=== PATIENT | female | born 1965 | race Caucasian/White ===

== ENCOUNTER 2017-09-24 14:44 | Outpatient (CLI) | payer BC | END 2017-09-24 14:45 | disposition critical access hospital (66) | LOC: EMS 14:44 | PROVIDERS: ATTEND Surgery | DX: S01.81XA Laceration without foreign body of other part of head, initial encounter (principal); W10.8XXA Fall (on) (from) other stairs and steps, initial encounter; Y92.008 Other place in unspecified non-institutional (private) residence as the place of occurrence of the external cause | CPT/HCPCS: A0425; A0427 ==

== ENCOUNTER 2017-09-24 15:04 | Emergency (ER) | payer BC ==
[2017-09-24] MEDS ORDERED: HYDROmorphone 1 MG/ML CARPUJECT IVP STA ×2 (15:17→17:35)
[2017-09-24] MEDS ORDERED: ONDANSETRON 4 MG/2 ML VIAL IVP STA (15:17)
--- NOTE | 2017-09-24 16:15 | CT Report ---
EXAM: CT HEAD EXAM DATE: 09/24/2017 04:01 PM. CLINICAL HISTORY: Fall, forehead laceration. COMPARISON: None. TECHNIQUE: Multiaxial CT images were obtained from the foramen magnum to the vertex. Reformats: Coron al. IV contrast: None. In accordance with CT protocol optimization, one or more of the following dose reduction techniques w ere utilized for this exam: automated exposure control, adjustment of mA and/or KV based on patient s ize, or use of iterative reconstructive technique. FINDINGS: Parenchyma: No intraparenchymal hemorrhage. No evidence of mass, midline shift, or CT findings of inf arction. Morris-white differentiation is distinct. Extraaxial Spaces: Normal for age. No subdural or epidural collections. Ventricles: Normal in size and position. Sinuses and Orbits: Imaged paranasal sinuses, orbits, and mastoids show no significant abnormality. Bones: Unremarkable. Other: Soft tissue swelling over forehead with defect at laceration site. IMPRESSION: Soft tissue injury. Otherwise negative study. [facility] Referring Provider Line: [phone] SITE ID: [id number]
--- NOTE | 2017-09-24 16:19 | CT Report ---
EXAM: CT MAXILLOFACIAL WITHOUT CONTRAST EXAM DATE: 09/24/2017 04:01 PM. CLINICAL HISTORY: Fall, multiple facial injuries. COMPARISONS: None. TECHNIQUE: Thin-section axial images were acquired of the face without contrast. Post-processing: Cor onal and sagittal reformats. Other: None. In accordance with CT protocol optimization, one or more of the following dose reduction techniques w ere utilized for this exam: automated exposure control, adjustment of mA and/or KV based on patient s ize, or use of iterative reconstructive technique. FINDINGS: Soft Tissue: Soft tissue swelling and defect over the forehead. The infratemporal fossa and paraphary ngeal spaces are unremarkable. Orbits: Symmetric and unremarkable. Bones: Fracture of superior nasal spine with separation of the fracture fragment from the underlying bone. Extension of fracture lines into the nasal alae. Inferior nasal spine intact. Otherwise unremar kable. Temporomandibular Joints: The temporomandibular joints are symmetric and normally located. Sinuses: Unremarkable. No significant mucosal thickening. No air-fluid level. Other: None. IMPRESSION: 1. Nasal fracture. 2. Superficial soft tissue injury over forehead. [facility] Referring Provider Line: [phone] SITE ID: [id number]
--- NOTE | 2017-09-24 16:23 | CT Report ---
EXAM: CT CERVICAL SPINE WITHOUT CONTRAST DATE: 09/24/2017 04:01 PM. HISTORY: Fall, neck pain. COMPARISONS: None. TECHNIQUE: Thin-section axial images were acquired of the cervical spine without contrast. Post-proce ssing: Coronal and sagittal reformats. Other: None. In accordance with CT protocol optimization, one or more of the following dose reduction techniques w ere utilized for this exam: automated exposure control, adjustment of mA and/or KV based on patient s ize, or use of iterative reconstructive technique. FINDINGS: Alignment: No scoliosis or spondylolisthesis. Bones: No fracture or bone lesion. Interspace Levels/Facets: Minimal disk space narrowing at all cervical levels except C2-C3 with mild marginal lipping. Mild generalized degenerative changes. Musculature: Normal. No fatty atrophy. Other: No prevertebral soft tissue swelling. Heterogeneous enlarged thyroid. Apical blebs in the lung s. Lung apices otherwise clear. IMPRESSION: No acute disease. [facility] Referring Provider Line: [phone] SITE ID: [id number]
[2017-09-24] MEDS ORDERED: LIDOCAINE 2% 10 ML MDV SUBQ STA (16:47)
[2017-09-24] MEDS ORDERED: ceFAZolin 1 GM VIAL IVP STA (17:13)
--- NOTE | 2017-09-24 17:17 | ED Physician Documentation ---
PD HPI Fall - Stated complaint Stated Complaint: HEAD LAC - Chief complaint Chief Complaint: Trauma Hd/Nk - History obtained from History obtained from: Patient, Family, EMS - History of Present Illness Mechanism of injury: Slipped (walking down stairs) Fall distance: Standing position Where injury occurred: Home Timing - onset: How many minutes ago (30) Injury(ies) location: Head, Face Pain level max: 10 Pain level now: 10 Quality of pain: Pain, Aching, Dull Associated symptoms: No: LOC, AMS, Amnesia, Seizures, Ear drainage, Nasal drainage, Neck pain, Weakness, Paresthesias, Dyspnea, Nausea / vomiting Symptoms improve with: Rest Worsens with: Movement, Palpation Contributing factors: No: Anticoagulated, Intoxicated Recently seen: Not recently seen Review of Systems Ten Systems: 10 systems reviewed and negative Constitutional: denies: Fever, Chills Nose: denies: Rhinorrhea / runny nose, Congestion Throat: denies: Sore throat Cardiac: denies: Chest pain / pressure Respiratory: denies: Cough GI: denies: Nausea, Vomiting, Diarrhea Skin: denies: Rash Musculoskeletal: denies: Back pain, Extremity pain, Joint pain Neurologic: denies: Focal weakness, Numbness PD PAST MEDICAL HISTORY - Past Medical History Past Medical History: Yes Neuro: Seizure disorder - Past Surgical History Past Surgical History: Yes - Present Medications Home Medications: Ambulatory Orders Medication Instructions Recorded Confirmed Cephalexin [Keflex] 500 mg PO Q6H #28 capsule 09/24/17 Ondansetron Odt [Zofran] 4 mg TL Q6H PRN #10 tablet 09/24/17 Oxycodone HCl/Acetaminophen 1 - 2 each PO Q6H PRN #14 tablet 09/24/17 [Percocet 5-325 mg Tablet] - Allergies Allergies/Adverse Reactions: Allergies Allergy/AdvReac Type Severity Reaction Status Date / Time No Known Drug Allergies Allergy Verified 09/24/17 15:17 - Living Situation Living Situation: reports: With family Living Arrangement: reports: At home - Social History Does the pt smoke?: No Smoking Status: Never smoker Does the pt drink ETOH?: No Does the pt have substance abuse?: No - Immunizations Immunizations are current?: No PD ED PE NORMAL - Vitals Vital signs reviewed: Yes - General General: Alert and oriented X 3, No acute distress - HEENT HEENT: PERRL, EOMI, Moist mucous membranes, Other (small R lower lip laceration , 1cm, not through and through. Also large forehead laceration extending to the scalp. galea involved. overall laceration is approx 10cm, 5cm of galea involvement.) - Neck Neck: Supple, no meningeal sign, Other (mild mid c-spine TTP.) - Cardiac Cardiac: RRR, Strong equal pulses - Respiratory Respiratory: No respiratory distress, Clear bilaterally - Abdomen Abdomen: Soft, Non tender, Non distended - Derm Derm: Warm and dry - Extremities Extremities: No deformity, No tenderness to palpate, Normal ROM s pain - Neuro Neuro: Alert and oriented X 3, surgical clinical reviewer 2-12 intact, No motor deficit, No sensory deficit - Psych Psych: Normal mood, Normal affect Results - Vitals Vitals: Vital Signs - 24 hr 09/24/17 09/24/17 09/24/17 15:27 15:49 17:00 Temperature 36.7 C Heart Rate 72 65 69 Respiratory 12 18 14 Rate Blood Pressure 194/83 H 172/79 H 160/74 H O2 Saturation 96 98 100 09/24/17 09/24/17 18:00 18:48 Temperature Heart Rate 65 60 Respiratory 16 Rate Blood Pressure 118/71 113/67 O2 Saturation 94 93 Oxygen O2 Source Room air - Rads (name of study) head CT Radiology: Prelim report reviewed, EMP read contemporaneously, See rad report ( Soft tissue injury. Otherwise negative study. ) Cervical spine CT Radiology: Prelim report reviewed, EMP read contemporaneously, See rad report ( No acute disease.) facial CT Radiology: Prelim report reviewed, EMP read contemporaneously, See rad report ( Nasal fracture. 2. Superficial soft tissue injury over forehead. ) Procedures - Laceration (location) 10cm, forehead Length in cm: 10 Wound type: Curved, Flap Neurovascular status: Sensory intact, Vascular intact Anesthesia: Lidocaine 2% Wound Preparation: Irrigated copiously NS, Wound explored, To the base. No: FB identified, FB removed Skin layer closure: Nylon, [place], Interrupted Other: Patient tolerated well, No complications, Neurovascular intact Complexity: Simple lower lip Length in cm: 1 Wound type: Linear, Into muscle, Clean Neurovascular status: Sensory intact, Motor intact, Vascular intact Anesthesia: Lidocaine 2% Wound Preparation: Irrigated copiously NS, Wound explored, To the base. No: FB identified, FB removed Skin layer closure: Nylon, Interrupted Other: Patient tolerated well, No complications, Neurovascular intact Complexity: Simple PD MEDICAL DECISION MAKING - ED course Complexity details: reviewed results, re-evaluated patient, considered differential, d/w patient, d/w family, d/w farm consultant ([id number] - Dr. Lira (plastic surgery at [facility]). Recommends not worrying about closing the galea. Close the skin and follow up in clinic. ) ED course: Patient is a 52-year-old female who presents to the emergency department after a fall down the stairs today. No acute findings on CT scans. She does have a right lower lip laceration that is not through and through. This was repaired. Tolerated well. Also has a large forehead laceration that involves the galea , I discussed the case with plastic surgery who recommends closing the skin and leaving the galea open as it was difficult to reapproximate. States he will follow-up with the patient in clinic. Patient is comfortable with this plan. Patient has someone to stay with her at home today and tomorrow. Patient counseled regarding signs and symptoms for which I believe and urgent re- evaluation would be necessary. Patient with good understanding of and agreement to plan and is comfortable going home at this time This document was made in part using voice recognition software. While efforts are made to proofread this document, sound alike and grammatical errors may occur. Departure - Departure Disposition: 01 Home, Self Care Clinical Impression: Laceration of forehead, complicated Qualifiers: Encounter type: initial encounter Qualified Code(s): S01.81XA - Laceration without foreign body of other part of head, initial encounter Lip laceration Qualifiers: Encounter type: initial encounter Qualified Code(s): S01.511A - Laceration without foreign body of lip, initial encounter Head injury Qualifiers: Encounter type: initial encounter Qualified Code(s): S09.90XA - Unspecified injury of head, initial encounter Condition: Good Instructions: ED Laceration Facial Sutr Tape Follow-Up: Angelo Ramirez MD [Provider Admit Priv/Credential] - Within 1 week Prescriptions: Cephalexin [Keflex] 500 mg PO Q6H #28 capsule Ondansetron Odt [Zofran] 4 mg TL Q6H PRN #10 tablet PRN Reason: Nausea / Vomiting Oxycodone HCl/Acetaminophen [Percocet 5-325 mg Tablet] 1 - 2 each PO Q6H PRN # 14 tablet PRN Reason: pain Comments: You should follow-up with Dr. Ramirez for suture removal in approximately 5 days from your lip and approximately 7 days for your forehead. The galen can be removed in approximately 10 days. I spoke with Dr. Soraya clemente, plastic surgery at [facility] in [place] who is willing to see you in his office, his office number is , call for an appointment and he will see you in 1-2 weeks. You may need a referral for this. Keep the wound clean. Return for redness, swelling or drainage from the wound. Do not drink alcohol or drive while on narcotic pain medicine. Note that many narcotic pain relievers also contain tylenol/acetaminophen. Please ensure that your total dose of acetaminophen from all sources does not exceed 3 grams (3000mg) per day. You may constipated on this medication, take a stool softener such as "Colace" twice a day while you are on it. Also recommend a lldo-ehw-miippuf laxative such as senna or MiraLAX any day that you do not have a bowel movement. If you received narcotic pain medication in the emergency department, do not drive or operate machinery for the next 24 hours. Forms: Activity restrictions Discharge Date/Time: 09/24/17 18:49
[2017-09-24] MEDS ORDERED: BACITRACIN OINT TOP STA (18:26)
[2017-09-24] MEDS ORDERED: TETANUS/DIPHTHERIA/PERTUSSIS 0.5 ML SYRINGE IM ONE (18:27)
[2017-09-24 18:49] VITALS: BP 113/67
== END 2017-09-24 18:49 | disposition home or self-care (01) ==
LOC: EDUNIT# → ED 15:04
DX: S01.81XA Laceration without foreign body of other part of head, initial encounter (principal); S01.511A Laceration without foreign body of lip, initial encounter; W10.9XXA Fall (on) (from) unspecified stairs and steps, initial encounter; Z23 Encounter for immunization
CPT/HCPCS: 12015; 36415; 70450; 70486; 72125; 90471; 90715; 96374; 96376; 99284; 99285; A9270; J1170

== ENCOUNTER 2019-02-03 08:50 | Outpatient (CLI) | payer OTHER ==
[2019-02-03] MEDS ORDERED: GADOBUTROL 7.5 MMOL/7.5 ML VIAL ONE (09:25)
[2019-02-03] MEDS ORDERED: GADOBUTROL 7.5 MMOL/7.5 ML VIAL IVP ONE (09:41)
--- NOTE | 2019-02-03 23:45 | MRI Report ---
Reason: TREMOR, DYSEQUILIBRIUM, HX OF CLOSED HEAD INJURY Procedure Date: 02/03/2019 Accession Number: [id number] / [id number] Procedure: MRI - Brain W/WO CPT Code: FULL RESULT: EXAM: MRI BRAIN WITHOUT AND WITH CONTRAST EXAM DATE: 02/03/2019 09:59 AM. CLINICAL HISTORY: TREMOR, DYSEQUILIBRIUM, HX OF CLOSED HEAD INJURY. COMPARISON: Prior CT head 09/24/2017. TECHNIQUE: Multiplanar, multisequence T1-weighted and fluid-sensitive MR sequences of the brain were performed. Sequences optimized for routine evaluation. Other: None. IV Contrast: 6 cc Gadavist. Findings: Relevant images are indicated (image number, series number). There is no acute/subacute ischemic change of the brain. Gradient echo imaging negative. There is no hemorrhage, mass or midline shift. There is no significant cortical atrophy or white matter disease. Paranasal sinuses, orbital contents grossly unremarkable, degraded by motion. Pituitary negative. Midbrain, craniocervical junction, limited upper cervical cord negative. Postcontrast imaging demonstrates no abnormal enhancement of the brain, meninges. Minimal generalized brain atrophy appears present. Impressions: 1. Unremarkable exam, partly degraded by motion. With only minimal brain atrophy. [facility]
== END 2019-02-03 08:51 | disposition home or self-care (01) ==
LOC: DI 08:50
PROVIDERS: ATTEND Family Medicine
DX: R25.1 Tremor, unspecified (principal); R42 Dizziness and giddiness; R56.9 Unspecified convulsions; Z87.820 Personal history of traumatic brain injury
CPT/HCPCS: 70553; A9585

== ENCOUNTER 2019-04-14 12:16 | Outpatient (CLI) | payer OTHER ==
--- NOTE | 2019-04-15 01:26 | MRI Report ---
Reason: MYELOPATHY Procedure Date: 04/14/2019 Accession Number: [id number] / [id number] Procedure: MRI - Cervical Spine W/O CPT Code: Final Report FULL RESULT: EXAM: MRI CERVICAL SPINE WITHOUT CONTRAST EXAM DATE: 04/14/2019 01:06 PM. CLINICAL HISTORY: Neck pain with bilateral arm tingling. COMPARISONS: CERVICAL SPINE W/O 09/24/2017 3:47 PM. TECHNIQUE: Multiplanar, multisequence T1-weighted and fluid-sensitive sequences of the cervical spine without contrast. Other: None. FINDINGS: Neurologic Structures: The visualized posterior fossa structures are unremarkable. Focal T2 hyperintensity is noted in the spinal cord just below the C4-C5 disk level with associated thinning of the cord, consistent with myelomalacia. Alignment: Retrolisthesis at C3-C4 measures 1-2 mm. Bone Marrow: Type I Modic endplate changes are present at C4-C5 and C6-C7. Interspace Levels/Facets: C1-C2: There is no craniocervical stenosis. C2-C3: A small left paracentral protrusion is present without spinal canal or foraminal stenosis. C3-C4: A prominent central protrusion causes indentation on the spinal cord with mild spinal cord impingement. There is severe bilateral foraminal narrowing due to uncovertebral hypertrophy. C4-C5: A posterior disk osteophyte complex with ligamentum flavum infolding result in severe spinal canal stenosis. The AP diameter of the spinal canal measures 5 mm. There is severe bilateral foraminal narrowing due to uncovertebral hypertrophy. C5-C6: A posterior disk osteophyte complex results in mild spinal canal stenosis. There is flattening of the ventral spinal cord but without definite spinal cord impingement. There is severe right and moderate left foraminal narrowing due to uncovertebral hypertrophy. C6-C7: A posterior disk osteophyte complex results in mild spinal canal stenosis but without impingement of the spinal cord. There is moderate bilateral foraminal narrowing due to uncovertebral hypertrophy. C7-T1: Unremarkable. Musculature: Normal. No edema or fatty atrophy. Other: Multiple nodules are noted in the bilateral thyroid lobes, larger on the right measuring up to 1.8 x 2.3 cm (image 5, series 801). IMPRESSION: 1. Focal thinning of the spinal cord with T2 hyperintensity just below the C4-C5 disk level is consistent with myelomalacia. 2. Moderate to severe multilevel degenerative changes are present throughout the cervical spine. Spinal canal stenosis with spinal cord impingement is noted at C3-C4 and C4-C5. 3. Severe bilateral foraminal narrowing is present at C3-C4 and C4-C5. Severe right foraminal narrowing is also present at C5-C6. 4. Type I Modic endplate changes are present at C4-C5 and C6-C7. [facility]
== END 2019-04-14 12:17 | disposition home or self-care (01) ==
LOC: DI 12:16
PROVIDERS: ATTEND Internal Medicine
DX: M50.21 Other cervical disc displacement, high cervical region (principal); M47.812 Spondylosis without myelopathy or radiculopathy, cervical region; M43.12 Spondylolisthesis, cervical region; M50.31 Other cervical disc degeneration, high cervical region; M48.02 Spinal stenosis, cervical region
CPT/HCPCS: 72141

== ENCOUNTER 2019-06-25 14:24 | Emergency (ER) | payer BC, OTHER ==
--- NOTE | 2019-06-25 15:22 | ED Physician Documentation ---
History of Present Illness - Stated complaint Stated Complaint: NECK DRAINING/ S/P SURGERY - Chief complaint Chief Complaint: General - History obtained from History obtained from: Patient - History of Present Illness Timing: Today Pain level max: 0 Pain level now: 0 Improved by: nothing Worsened by: nothing - Additonal information Additional information: Patient is status post cervical spine fusion, she believes C4 and C5. She states the operation was performed by Dr. Fried at the [facility]. No fevers. Has had mild headaches, but this is not uncommon for her. She states that there was clear drainage today with a small amount of blood in it. She states the sutures were removed approximately a week ago. Review of Systems Constitutional: denies: Fever, Chills Nose: denies: Rhinorrhea / runny nose, Congestion Respiratory: denies: Cough GI: denies: Nausea, Vomiting, Diarrhea Skin: denies: Rash Musculoskeletal: denies: Neck pain, Back pain Neurologic: denies: LOC PD PAST MEDICAL HISTORY - Past Medical History Past Medical History: Yes Cardiovascular: High cholesterol Neuro: Seizure disorder Other Past Medical History: cervical radiculopathy - Past Surgical History Past Surgical History: Yes Ortho: Spine surgery HEENT: Rhinoplasty - Present Medications Home Medications: Ambulatory Orders Medication Instructions Recorded Confirmed Cephalexin [Keflex] 500 mg PO Q6H #28 capsule 09/24/17 Ondansetron Odt [Zofran] 4 mg TL Q6H PRN #10 tablet 09/24/17 Oxycodone HCl/Acetaminophen 1 - 2 each PO Q6H PRN #14 tablet 09/24/17 [Percocet 5-325 mg Tablet] - Allergies Allergies/Adverse Reactions: Allergies Allergy/AdvReac Type Severity Reaction Status Date / Time No Known Drug Allergies Allergy Verified 06/25/19 14:27 - Social History Does the pt smoke?: No Smoking Status: Never smoker Does the pt drink ETOH?: No Does the pt have substance abuse?: No - Immunizations Immunizations are current?: No PD ED PE NORMAL - Vitals Vital signs reviewed: Yes - General General: Alert and oriented X 3, No acute distress, Well developed/nourished - HEENT HEENT: PERRL, Moist mucous membranes - Neck Neck: Supple, no meningeal sign, Other (1 cm wound dehiscence to the posterior neck. There is a large open cavity underneath this and the spine is visible. No purulence visible.) - Cardiac Cardiac: RRR, Strong equal pulses - Respiratory Respiratory: No respiratory distress, Clear bilaterally - Abdomen Abdomen: Soft, Non tender, Non distended - Derm Derm: Warm and dry - Extremities Extremities: Normal ROM s pain - Neuro Neuro: Alert and oriented X 3, No motor deficit, No sensory deficit, Normal speech - Psych Psych: Normal mood, Normal affect Results - Vitals Vitals: Vital Signs - 24 hr 06/25/19 14:28 Temperature 36.4 C L Heart Rate 56 L Respiratory 18 Rate Blood Pressure 194/81 H O2 Saturation 93 Oxygen O2 Source Room air - Labs Labs: Laboratory Tests 06/25/19 06/25/19 06/25/19 15:25 15:25 15:25 WBC 5.8 RBC 4.42 Hgb 13.7 Hct 41.1 MCV 93.0 MCH 31.0 MCHC 33.3 RDW 13.0 Plt Count 151 MPV 10.1 Neut # (Auto) 2.7 Lymph # (Auto) 2.2 [place] # (Auto) 0.5 Eos # (Auto) 0.4 Baso # (Auto) 0.1 Absolute Nucleated RBC 0.00 Nucleated RBC % 0.0 ESR 1 Sodium 136 Potassium 4.1 Chloride 101 Carbon Dioxide 27 Anion Gap 8.0 BUN 9 Creatinine 0.5 Estimated GFR (MDRD) 129 Glucose 96 Calcium 9.5 C-Reactive Protein < 1.0 PD MEDICAL DECISION MAKING - ED course Complexity details: reviewed results, re-evaluated patient, considered differential, d/w patient, d/w business sales consultant ED course: 54-year-old female with a postoperative wound dehiscence in the posterior aspect of her neck with a large subcutaneous defect. Her surgical bed is visible. Discussed the case with Dr. Ceballos, neurosurgery who recommends transfer to the [facility] emergency department where they can further evaluate her wound. COBRA forms completed. Patient and her refuse ambulance transport. They will drive and understand the risks including infection, bleeding, paralysis, . This document was made in part using voice recognition software. While efforts are made to proofread this document, sound alike and grammatical errors may occur. Departure - Departure Disposition: 02 Transfer Acute Care Hosp Clinical Impression: Wound dehiscence Condition: Stable Comments: You are to go directly to the [facility] emergency department. you should remain nothing by mouth in case you need to go back to the OR. I spoke with Dr. Tucker clemente.
[2019-06-25 15:36] LABS: BASOPHILS # (AUTO) 0.1 10^3/uL (0.0-0.1); BASOPHILS % (AUTO) 0.9 %; EOSINOPHILS # (AUTO) 0.4 10^3/uL (0.0-0.7); EOSINOPHILS % (AUTO) 6.8 %; HGB - HEMOGLOBIN 13.7 g/dL (12.0-16.0); LYMPHOCYTES # (AUTO) 2.2 10^3/uL (1.5-3.5); MEAN CORPUSCULAR HGB CONC 33.3 g/dL (32.0-36.0); MEAN PLATELET VOLUME 10.1 fL (7.9-10.8); MONOCYTES # (AUTO) 0.5 10^3/uL (0.0-1.0); MONOCYTES % (AUTO) 8.2 %; NEUTROPHILS # (AUTO) 2.7 10^3/uL (1.5-6.6); NEUTROPHILS % (AUTO) 45.9 %; PLT - PLATELET COUNT 151 10^3/uL (130-450); RED BLOOD COUNT 4.42 10^6/uL (4.20-5.40); WHITE BLOOD COUNT 5.8 x10^3/uL (4.8-10.8)
[2019-06-25 15:50] LABS: BUN - BLOOD UREA NITROGEN 9 mg/dL (6-20); CALCIUM 9.5 mg/dL (8.5-10.3); CARBON DIOXIDE - CO2 27 mmol/L (21-32); CHLORIDE 101 mmol/L (101-111); CREATININE 0.5 mg/dL (0.4-1.0); GFR - MDRD 129 (>89); GLUCOSE 96 mg/dL (70-100); SODIUM 136 mmol/L (135-145)
[2019-06-25 15:52] LABS: CRP - C-REACTIVE PROTEIN < 1.0 mg/dL (0-1.0)
[2019-06-25 17:34] VITALS: BP 177/110
== END 2019-06-25 17:37 | disposition short-term general hospital (02) ==
LOC: ED 14:24
DX: T81.31XA Disruption of external operation (surgical) wound, not elsewhere classified, initial encounter (principal); Y83.8 Other surgical procedures as the cause of abnormal reaction of the patient, or of later complication, without mention of misadventure at the time of the procedure
CPT/HCPCS: 36415; 80048; 85025; 85651; 86140; 99284; 99285

== ENCOUNTER 2020-09-12 08:00 | Outpatient (CLI) | payer BC ==
[2020-09-12 13:23] LABS: BASOPHILS % (AUTO) 0.8 %; EOSINOPHILS # (AUTO) 0.3 10^3/uL (0.0-0.7); EOSINOPHILS % (AUTO) 6.5 %; HGB - HEMOGLOBIN 13.7 g/dL (12.0-16.0); LYMPHOCYTES # (AUTO) 2.5 10^3/uL (1.5-3.5); LYMPHOCYTES % (AUTO) 52.7 %; MEAN CORPUSCULAR HEMOGLOBIN 30.7 pg (27.0-31.0); MEAN CORPUSCULAR HGB CONC 33.4 g/dL (32.0-36.0); MEAN CORPUSCULAR VOLUME 91.9 fL (81.0-99.0); MEAN PLATELET VOLUME 11.3 fL (7.9-10.8); MONOCYTES # (AUTO) 0.3 10^3/uL (0.0-1.0); MONOCYTES % (AUTO) 7.1 %; NEUTROPHILS # (AUTO) 1.6 10^3/uL (1.5-6.6); NEUTROPHILS % (AUTO) 32.7 %; PLT - PLATELET COUNT 177 10^3/uL (130-450); RED BLOOD COUNT 4.46 10^6/uL (4.20-5.40); RED CELL DISTRIBUTION WIDTH 13.2 % (12.0-15.0); WHITE BLOOD COUNT 4.8 x10^3/uL (4.8-10.8)
[2020-09-12 13:44] LABS: ALBUMIN 4.2 g/dL (3.2-5.5); ALBUMIN/GLOBULIN RATIO 1.4 (1.0-2.2); ALKALINE PHOSPHATASE 89 IU/L (42-121); ALT ALANINE AMINOTRANSFERASE 14 IU/L (10-60); AST ASPARTATE AMINOTRANSFERASE 19 IU/L (10-42); BILIRUBIN,TOTAL 0.6 mg/dL (0.2-1.0); BUN - BLOOD UREA NITROGEN 10 mg/dL (6-20); CALCIUM 9.3 mg/dL (8.5-10.3); CARBAMAZEPINE (TEGRETOL) 6.6 ug/mL; CARBON DIOXIDE - CO2 25 mmol/L (21-32); CHLORIDE 99 mmol/L (101-111); CHOL/HDL RATIO 2.6 (<4.4); CHOLESTEROL 220 mg/dL; CREATININE 0.6 mg/dL (0.4-1.0); GFR - MDRD 104 (>89); GLUCOSE 87 mg/dL (70-100); HDL CHOLESTEROL 86 mg/dL; LDL CHOLESTEROL,CALCULATED 118 mg/dL; LDL/HDL RATIO 1.4 (<4.4); POTASSIUM 4.1 mmol/L (3.5-5.0); SODIUM 133 mmol/L (135-145); TOTAL PROTEIN 7.1 g/dL (6.7-8.2); TRIGLYCERIDES 82 mg/dL; VLDL CHOLESTEROL 16 mg/dL
[2020-09-12 13:52] LABS: THYROID STIMULATING HORMONE 0.79 uIU/mL (0.34-5.60)
== END 2020-09-12 23:59 | disposition home or self-care (01) ==
LOC: LAB.WCP 08:00
PROVIDERS: ATTEND Family Medicine
DX: I10 Essential (primary) hypertension (principal); G40.909 Epilepsy, unspecified, not intractable, without status epilepticus
CPT/HCPCS: 36415; 80053; 80061; 80156; 83721; 84443; 85025

== ENCOUNTER 2021-01-06 17:29 | Outpatient (CLI) | payer BC ==
--- NOTE | 2021-01-06 18:46 | XRAY Report ---
PROCEDURE: Hips 2V BILAT INDICATIONS: R HIP PX TECHNIQUE: 3 views of the hip were acquired. COMPARISON: None FINDINGS: Bones: No fractures or dislocations. Right worse than left bilateral hip joint osteoarthritic change s are seen. No evidence of avascular necrosis of femoral head. No suspicious bony lesions. The visua lized pelvic ring appears intact. Soft tissues: No suspicious soft tissue calcifications or masses. IMPRESSION: Right worse than left bilateral mild hip joint osteoarthritis. No fracture or dislocation. No evidenc e of avascular necrosis. Reviewed by: Con Mcgowan MD on 01/06/2021 6:44 PM PDT Approved by: Con Mcgowan MD on 01/06/2021 6:44 PM PDT Station ID: [id number]
== END 2021-01-06 17:30 | disposition home or self-care (01) ==
LOC: DI.N 17:29
PROVIDERS: ATTEND Family Medicine
DX: M16.0 Bilateral primary osteoarthritis of hip (principal)

== ENCOUNTER 2021-06-25 11:31 | Outpatient (CLI) | payer SELFPAY ==
[2021-06-25 17:54] LABS: BASOPHILS % (AUTO) 0.7 %; EOSINOPHILS # (AUTO) 0.3 10^3/uL (0.0-0.7); EOSINOPHILS % (AUTO) 5.7 %; HCT - HEMATOCRIT 38.6 % (37.0-47.0); HGB - HEMOGLOBIN 12.9 g/dL (12.0-16.0); LYMPHOCYTES # (AUTO) 2.4 10^3/uL (1.5-3.5); MEAN CORPUSCULAR HEMOGLOBIN 31.2 pg (27.0-31.0); MEAN CORPUSCULAR HGB CONC 33.4 g/dL (32.0-36.0); MEAN CORPUSCULAR VOLUME 93.5 fL (81.0-99.0); MEAN PLATELET VOLUME 11.5 fL (7.9-10.8); MONOCYTES # (AUTO) 0.5 10^3/uL (0.0-1.0); MONOCYTES % (AUTO) 8.3 %; NEUTROPHILS # (AUTO) 2.4 10^3/uL (1.5-6.6); NEUTROPHILS % (AUTO) 43.1 %; PLT - PLATELET COUNT 173 10^3/uL (130-450); RED BLOOD COUNT 4.13 10^6/uL (4.20-5.40); RED CELL DISTRIBUTION WIDTH 13.2 % (12.0-15.0); WHITE BLOOD COUNT 5.7 x10^3/uL (4.8-10.8)
[2021-06-25 18:14] LABS: CRP - C-REACTIVE PROTEIN < 1.0 mg/dL (0-1.0)
[2021-06-25 18:15] LABS: URIC ACID 3.5 mg/dL (2.6-7.2)
== END 2021-06-25 11:32 | disposition home or self-care (01) ==
LOC: LAB.N 11:31
PROVIDERS: ATTEND Family Medicine
DX: M79.644 Pain in right finger(s) (principal)
CPT/HCPCS: 36415; 84550; 85025; 85651; 86140

== ENCOUNTER 2021-06-25 11:38 | Outpatient (CLI) | payer SELFPAY ==
--- NOTE | 2021-06-25 15:00 | XRAY Report ---
PROCEDURE: Finger(s) RT INDICATIONS: RIGHT RING FINGER PAIN TECHNIQUE: AP hand, 2 views of the fourth finger(s) acquired. COMPARISON: None FINDINGS: Bones: No fractures or dislocations. No suspicious bony lesions. Soft tissues: No suspicious soft tissue calcifications. IMPRESSION: No acute fracture. No osseous lesion. If symptoms and/or clinical suspicion for pathology continue, f urther assessment with repeat plain films, or advanced imaging (e.g., CT, MRI, or bone scan) is recom mended for further assessment. Reviewed by: Parker Zuñiga MD on 06/25/2021 2:59 PM PST Approved by: Parker Zuñiga MD on 06/25/2021 2:59 PM PST Station ID: [id number]
== END 2021-06-25 11:39 | disposition home or self-care (01) ==
LOC: DI.N 11:38
PROVIDERS: ATTEND Family Medicine
DX: M79.644 Pain in right finger(s) (principal)
CPT/HCPCS: 36415; 84550; 85025; 85651; 86140

== ENCOUNTER 2021-06-26 11:40 | Outpatient (CLI) | payer BC, OTHER | END 2021-06-26 23:59 | disposition home or self-care (01) | LOC: LAB.N 11:40 | PROVIDERS: ATTEND Physician Assistant | DX: L03.019 Cellulitis of unspecified finger (principal) | CPT/HCPCS: 87070; 87181; 87205 ==

== ENCOUNTER 2021-07-14 14:56 | Outpatient (CLI) | payer OTHER ==
--- NOTE | 2021-07-14 16:16 | XRAY Report ---
PROCEDURE: Finger(s) RT INDICATIONS: R FINGER PX TECHNIQUE: AP hand, 2 views of the fourth finger(s) acquired. COMPARISON: 06/25/2021 FINDINGS: No lytic or destructive lesion identified. No periosteal reaction. No soft tissue gas or radiopaque f oreign body. Swelling in the distal fourth digit. IMPRESSION: No acute osseous finding. Reviewed by: Anthony Lynn MD on 07/14/2021 4:15 PM PST Approved by: Anthony Lynn MD on 07/14/2021 4:15 PM PST Station ID: [id number]
== END 2021-07-14 14:57 | disposition home or self-care (01) ==
LOC: DI.N 14:56
PROVIDERS: ATTEND Family Medicine
DX: L03.011 Cellulitis of right finger (principal)

== ENCOUNTER 2021-08-06 13:15 | Outpatient (CLI) | payer OTHER ==
[2021-08-06 13:37] LABS: CREATININE 0.6 mg/dL (0.4-1.0)
[2021-08-06] MEDS ORDERED: GADOBUTROL 7.5 MMOL/7.5 ML VIAL ONE (14:53)
[2021-08-06] MEDS ORDERED: GADOBUTROL 7.5 MMOL/7.5 ML VIAL IVP ONE (17:18)
--- NOTE | 2021-08-07 08:56 | MRI Report ---
PROCEDURE: Hand RT W/WO INDICATIONS: RIGHT HAND DISTAL RING FINGER INFECTION TECHNIQUE: Noncontrast coronal T1 spin echo and T2 fast spin echo with fat saturation, axial proton density fast spin echo and T2 fast spin echo with fat saturation, sagittal T1 spin echo and STIR through the hand and fingers. COMPARISON: Right finger radiographs 07/14/2021. FINDINGS: Image quality: Excellent. Bones: Osseous edema and enhancement are seen in the tuft of the fourth distal phalanx with slightly decreased T1 signal intensity on precontrast images. No focal cortical destruction is seen. However, findings are suspicious for mild or early osteomyelitis. The remaining osseous structures are normal in signal intensity without additional osseous enhancement. The bones are normally aligned, without marrow contusions or fractures. No intra-osseous lesions. Soft tissues: Skin irregularity is seen at the ulnar aspect of the distal tip of the fourth finger w ith surrounding subcutaneous edema and enhancement. The visualized flexor and extensor tendons remain intact without tenosynovitis. No collateral ligament injury is seen. Visualized muscles demonstrate normal bulk and internal signal. No intramuscular masses identified. No ganglion cysts. Mild nonspe cific subcutaneous edema is seen at the dorsal to the third through fifth proximal interphalangeal romelia ints. IMPRESSION: 1.Small skin ulcer at the tip of the ring finger with surrounding subcutaneous edema and enhancement. No fluid collection is seen to suggest abscess formation. 2.Mild osseous edema with subtle loss of T1-weighted signal at the tuft of the fourth distal phalanx adjacent to the ulcer is suspicious for mild or early osteomyelitis. No definite cortical destruction is seen. Reviewed by: Joe Schwartz MD on 08/07/2021 8:55 AM PST Approved by: Joe Schwartz MD on 08/07/2021 8:55 AM PST Station ID: [id number]
== END 2021-08-06 13:16 | disposition home or self-care (01) ==
LOC: LAB 13:15
PROVIDERS: ATTEND Orthopaedic Surgery
DX: R79.89 Other specified abnormal findings of blood chemistry (principal); R93.6 Abnormal findings on diagnostic imaging of limbs; R93.89 Abnormal findings on diagnostic imaging of other specified body structures
CPT/HCPCS: 36415; 73220; 82565; 84520; A9585

== ENCOUNTER 2022-04-28 10:57 | Outpatient (CLI) | payer OTHER ==
--- NOTE | 2022-04-28 12:27 | Mammography Report ---
BILATERAL DIGITAL DIAGNOSTIC MAMMOGRAM 3D/2D: 04/28/2022 CLINICAL: Open wound right breast. Due for bilateral. Comparison is made to exams dated: 06/14/2014 mammogram, 03/02/2011 mammogram, and 03/06/2008 mammogram - [facility]. There are scattered areas of fibroglandular density in both breasts (category b / 25%-50% glandular t issue). There are bilateral nipple piercings. No significant masses, calcifications, or other findings are seen in either breast. IMPRESSION: NEGATIVE There is no mammographic abnormality seen in the right breast to correspond with the now resolved nip ple abnormality, however, clinical followup is recommended. There is no mammographic evidence of malignancy. A 1 year screening mammogram is recommended. Based on the Tyrer Cuzick model (a risk assessment model) the patients lifetime risk is 7.2% and her 10 year risk is 2.3%. According to the ACR, ACS, and NCCN guidelines, an annual breast MRI exam dontae g with mammogram is recommended if the patients lifetime risk is 20% or greater. This exam was interpreted at Station ID: [id number]. NOTE: For mammograms, a report in lay terms will be sent to the patient. Approximately 15% of breast malignancies will not be visualized mammographically. In the management of a palpable breast mass, a negative mammogram must not discourage biopsy of a clinically suspicious lesion. Electronically Signed By: Farzaneh Jiang M.D. lk/:04/28/2022 11:30:54 ACR BI-RADS Category 1: Negative 3341F PARENCHYMAL PATTERN: (A) - The breast(s) demonstrate(s) scattered fibroglandular densities. BI-RADS CATEGORY: (1) - 1 RECOMMENDATION: (ANNUAL) - Recommend routine annual screening mammography. [id number] 1 year screening LATERALITY: (B)
== END 2022-04-28 10:58 | disposition home or self-care (01) ==
LOC: DI 10:57
PROVIDERS: ATTEND Physician Assistant
DX: S21.001D Unspecified open wound of right breast, subsequent encounter (principal)

== ENCOUNTER 2022-12-01 07:49 | Outpatient (CLI) | payer OTHER ==
[2022-12-01 11:56] LABS: BASOPHILS # (AUTO) 0.1 10^3/uL (0.0-0.1); BASOPHILS % (AUTO) 1.2 %; EOSINOPHILS # (AUTO) 0.4 10^3/uL (0.0-0.7); EOSINOPHILS % (AUTO) 8.2 %; HCT - HEMATOCRIT 41.1 % (37.0-47.0); HGB - HEMOGLOBIN 14.2 g/dL (12.0-16.0); LYMPHOCYTES # (AUTO) 2.1 10^3/uL (1.5-3.5); LYMPHOCYTES % (AUTO) 41.6 %; MEAN CORPUSCULAR HEMOGLOBIN 31.1 pg (27.0-31.0); MEAN CORPUSCULAR HGB CONC 34.5 g/dL (32.0-36.0); MEAN CORPUSCULAR VOLUME 90.1 fL (81.0-99.0); MEAN PLATELET VOLUME 10.8 fL (7.9-10.8); MONOCYTES # (AUTO) 0.4 10^3/uL (0.0-1.0); MONOCYTES % (AUTO) 8.3 %; NEUTROPHILS # (AUTO) 2.1 10^3/uL (1.5-6.6); NEUTROPHILS % (AUTO) 40.5 %; PLT - PLATELET COUNT 192 10^3/uL (130-450); RED BLOOD COUNT 4.56 10^6/uL (4.20-5.40); RED CELL DISTRIBUTION WIDTH 13.6 % (12.0-15.0); WHITE BLOOD COUNT 5.2 x10^3/uL (4.8-10.8)
[2022-12-01 12:14] LABS: ALBUMIN 3.9 g/dL (3.2-5.5); ALBUMIN/GLOBULIN RATIO 1.2 (1.0-2.2); ALKALINE PHOSPHATASE 67 IU/L (42-121); ALT ALANINE AMINOTRANSFERASE 16 IU/L (10-60); AST ASPARTATE AMINOTRANSFERASE 17 IU/L (10-42); BILIRUBIN,TOTAL 0.4 mg/dL (0.2-1.0); BUN - BLOOD UREA NITROGEN 8 mg/dL (6-20); CALCIUM 8.9 mg/dL (8.5-10.3); CARBON DIOXIDE - CO2 26 mmol/L (21-32); CHLORIDE 98 mmol/L (101-111); CHOL/HDL RATIO 2.7 (<4.4); CHOLESTEROL 236 mg/dL; CREATININE 0.6 mg/dL (0.4-1.0); GFR - MDRD 103 (>89); GLUCOSE 90 mg/dL (70-100); HDL CHOLESTEROL 88 mg/dL; LDL CHOLESTEROL,CALCULATED 126 mg/dL; LDL/HDL RATIO 1.4 (<4.4); PHENYTOIN (DILANTIN) 9.6 ug/mL; POTASSIUM 3.8 mmol/L (3.5-5.0); SODIUM 131 mmol/L (135-145); TOTAL PROTEIN 7.1 g/dL (6.7-8.2); TRIGLYCERIDES 108 mg/dL; VLDL CHOLESTEROL 22 mg/dL
[2022-12-01 12:26] LABS: THYROID STIMULATING HORMONE 1.06 uIU/mL (0.34-5.60)
[2022-12-01 12:29] LABS: FERRITIN 20.4 ng/mL (11.0-306.8)
== END 2022-12-01 07:50 | disposition home or self-care (01) ==
LOC: LAB.N 07:49
PROVIDERS: ATTEND Nurse Practitioner Family
DX: I10 Essential (primary) hypertension (principal); G40.909 Epilepsy, unspecified, not intractable, without status epilepticus; E55.9 Vitamin D deficiency, unspecified; Z79.899 Other long term (current) drug therapy
CPT/HCPCS: 36415; 80053; 80061; 80156; 80157; 80185; 81001; 81599; 82306; 82728; 83721; 84443; 85025

== ENCOUNTER 2023-01-18 07:51 | Outpatient (CLI) | payer OTHER ==
--- NOTE | 2023-01-18 20:19 | DEXA Report ---
PROCEDURE: Dexa Spine and/or Hip INDICATIONS: POST MENOPAUSAL TECHNIQUE: Dual energy x-ray absorptiometry (DXA) was performed on a [email or web address] System. Regions measur ed are the AP Spine, femoral neck, and if needed forearm. COMPARISON: None FINDINGS: Lumbar Spine: Bone Mineral Density 1.047 g/cm/cm,T score -1.1. Left Femoral Neck: Bone Mineral Density 0.820 g/cm/cm, T score -1.6. Left Hip: Bone Mineral Density 0.847 g/cm/cm,T score -1.3. (T score greater or equal to -1.0: NORMAL) (T score from -1.1 to -2.4: OSTEOPENIA) (T score less than or equal to -2.5 to: OSTEOPOROSIS) Impression: By WHO criteria, this patient has low bone density (osteopenia). Patients with diagnosis of osteoporosis or osteopenia should have regular bone mineral density assess ment. For those eligible for Medicare, routine testing is allowed once every 2 years. Testing frequ ency can be increased for patients who have rapidly progressing disease or for those who are receivin g medical therapy to restore bone mass. Reviewed by: Con Mcgowan MD on 01/18/2023 8:17 PM PDT Approved by: Con Mcgowan MD on 01/18/2023 8:17 PM PDT Station ID: [id number]
== END 2023-01-18 07:52 | disposition home or self-care (01) ==
LOC: DI 07:51
PROVIDERS: ATTEND Nurse Practitioner Family
DX: Z78.0 Asymptomatic menopausal state (principal); M85.80 Other specified disorders of bone density and structure, unspecified site

== ENCOUNTER 2023-11-25 08:29 | Outpatient (CLI) | payer OTHER ==
[2023-11-25 13:35] LABS: BASOPHILS # (AUTO) 0.1 10^3/uL (0.0-0.1); BASOPHILS % (AUTO) 1.1 %; EOSINOPHILS # (AUTO) 0.3 10^3/uL (0.0-0.7); EOSINOPHILS % (AUTO) 4.9 %; HCT - HEMATOCRIT 40.3 % (37.0-47.0); HGB - HEMOGLOBIN 13.7 g/dL (12.0-16.0); LYMPHOCYTES # (AUTO) 2.1 10^3/uL (1.5-3.5); LYMPHOCYTES % (AUTO) 37.6 %; MEAN CORPUSCULAR HEMOGLOBIN 30.7 pg (27.0-31.0); MEAN CORPUSCULAR VOLUME 90.4 fL (81.0-99.0); MEAN PLATELET VOLUME 10.9 fL (7.9-10.8); MONOCYTES # (AUTO) 0.5 10^3/uL (0.0-1.0); MONOCYTES % (AUTO) 8.6 %; NEUTROPHILS # (AUTO) 2.7 10^3/uL (1.5-6.6); NEUTROPHILS % (AUTO) 47.6 %; PLT - PLATELET COUNT 193 10^3/uL (130-450); RED BLOOD COUNT 4.46 10^6/uL (4.20-5.40); RED CELL DISTRIBUTION WIDTH 13.7 % (12.0-15.0); WHITE BLOOD COUNT 5.6 x10^3/uL (4.8-10.8)
[2023-11-25 14:07] LABS: ALBUMIN 4.3 g/dL (3.2-5.5); ALBUMIN/GLOBULIN RATIO 1.8 (1.0-2.2); BILIRUBIN,TOTAL 0.3 mg/dL (0.2-1.0); CALCIUM 9.6 mg/dL (8.5-10.3); CREATININE 0.7 mg/dL (0.6-1.3); POTASSIUM 4.7 mmol/L (3.5-4.5); THYROID STIMULATING HORMONE 0.78 uIU/mL (0.34-5.60); TOTAL PROTEIN 6.7 g/dL (6.4-8.9)
== END 2023-11-25 08:30 | disposition home or self-care (01) ==
LOC: LAB.N 08:29
PROVIDERS: ATTEND Internal Medicine Rheumatology
DX: M34.1 CR(E)ST syndrome (principal); R63.5 Abnormal weight gain; I10 Essential (primary) hypertension; G40.909 Epilepsy, unspecified, not intractable, without status epilepticus; Z79.899 Other long term (current) drug therapy
CPT/HCPCS: 36415; 80053; 80185; 81599; 84443; 85025; 85651